=== PATIENT | female | born 1975 | race Caucasian/White ===

== ENCOUNTER 2019-07-17 11:07 | Inpatient (IN) ==
[2019-07-17] MEDS ORDERED: Ipratropium/Albuterol Neb 3 ML IH ONE (11:17)
[2019-07-17] MEDS ORDERED: levoFLOXacin 750 MG/150 ML 750 MG/150 ML BAG IVPB ONE (11:18)
[2019-07-17 11:46] LABS: Basophils # 0.1 K/mcL (0.0-0.2); Basophils % 0.3 %; Eosinophils % 0.2 %; Hemoglobin 20.8 g/dL (11.5-15.4); Immature Granulocytes % 0.4 % (0-4); Lymphocytes # 1.5 K/mcL (0.6-4.6); Lymphocytes % 9.4 %; Mean Corpuscular HGB Conc 35.9 g/dL (31.6-35.5); Mean Corpuscular Hemoglobin 34.8 pg (28.0-33.3); Mean Corpuscular Volume 97.2 fL (83.0-100.0); Monocytes # 1.1 K/mcL (0.0-1.3); Neutrophils # 13.3 K/mcL (1.6-8.9); Platelet Count 187 K/mcL (140-400); Red Blood Count 5.97 M/mcL (3.82-4.97); Red Cell Distribution Width 12.4 % (11.5-14.5); Segmented Neutrophils % 82.7 %; White Blood Count 16.1 K/mcL (4.3-11.1)
[2019-07-17] MEDS: 0.9 % Sodium Chloride 1,000 ML IVC SCH ×2 (11:49→12:58)
[2019-07-17 12:02] LABS: VBG Base Excess 2 mEq/L; VBG Chloride 101 mEq/L (98-107); VBG Glucose 127 mg/dl (65-95); VBG HCO3 26 mEq/L (21-27); VBG Ionized Calcium 1.06 mmol/L (1.15-1.35); VBG Oxygen Saturation 99 %; VBG PCO2 39 mmHg (41-51); VBG PH 7.44 pH Units (7.32-7.42); VBG PO2 115 mmHg (25-50); VBG Total CO2 28 mEq/L
[2019-07-17 12:09] LABS: Alanine Aminotransferase 19 Units/L (7-52); Albumin 3.8 g/dL (3.5-5.7); Albumin/Globulin Ratio 1.3 (1.1-2.2); Alkaline Phosphatase 116 Units/L (34-104); Aspartate Amino Transferase 17 Units/L (13-39); BUN/Creatinine Ratio 8 (6-26); Bilirubin,Direct 0.4 mg/dL (0.0-0.2); Bilirubin,Indirect 0.9 mg/dL (0.0-1.2); Bilirubin,Total 1.3 mg/dL (0.3-1.0); Blood Urea Nitrogen 3 mg/dL (6-20); Carbon Dioxide 26 mEq/L (23-29); Chloride 97 mEq/L (98-107); Glucose 125 mg/dL (70-105); Magnesium 1.6 mg/dL (1.6-2.6); Osmolality,Calculated 274 (280-300); Phosphorous 2.4 mg/dL (2.7-4.5); Potassium 3.1 mEq/L (3.5-5.1); Sodium 133 mEq/L (136-145); Total Protein 6.8 g/dL (6.4-8.9); Troponin I < 0.03 ng/mL (< 0.04); eGFR For African Americans > 60 (> 60); eGFR For Non-African Americans > 60 (> 60)
[2019-07-17] MEDS ORDERED: Potassium Chloride Elixir 20 MEQ/15 ML UDC PO ONE (12:12)
[2019-07-17 12:24] LABS: Bilirubin,Urine Small (Negative); Blood,Urine Negative (Negative); Clarity,Urine Cloudy (Clear); Color,Urine Dark Yellow (Yellow); Glucose,Urine (UA) 100 mg/dL (Normal); Ketones,Urine Negative (Negative); Leukocyte Esterase,Urine Small (Negative); Nitrite,Urine Negative (Negative); Protein,Urine 30 mg/dL (Neg-Trace); Urobilinogen,Urine Normal (Normal)
[2019-07-17 12:26] LABS: Bacteria,Urine Few per hpf (None-Few); Hyaline Casts,Urine None Seen per lpf (None-Few); Squamous Epithelial Cell,Urine Many per lpf (None-Few)
[2019-07-17 12:55] LABS: INR 1.3; Prothrombin Time 15.3 Seconds (9.4-12.1)
[2019-07-17] MEDS ORDERED: 0.9 % Sodium Chloride 500 ML IVC ONE (13:13)
[2019-07-17] MEDS ORDERED: Naloxone 0.4 MG/ML INJ IVP PRN (15:04)
[2019-07-17] MEDS: MethylPREDNISolone 40 MG/ML VIAL IVP SCH (17:07)
[2019-07-17] MEDS ORDERED: Melatonin 3 MG TABLET PO PRN (20:50)
[2019-07-18 05:25] LABS: Acinetobacter baumannii by PCR Not Detected (Not Detect); Candida albicans by PCR Not Detected (Not Detect); Candida glabrata by PCR Not Detected (Not Detect); Candida krusei by PCR Not Detected (Not Detect); Candida parapsilosis by PCR Not Detected (Not Detect); Enterobacter cloacae Cmplx PCR Not Detected (Not Detect); Enterobacteriaceae by PCR Not Detected (Not Detect); Enterococcus by PCR Not Detected (Not Detect); Escherichia coli by PCR Not Detected (Not Detect); Klebsiella oxytoca by PCR Not Detected (Not Detect); Klebsiella pneumoniae by PCR Not Detected (Not Detect); Proteus by PCR Not Detected (Not Detect); Pseudomonas aeruginosa by PCR Not Detected (Not Detect); Serratia marcescens by PCR Not Detected (Not Detect); Staphylococcus aureus by PCR Not Detected (Not Detect); Staphylococcus by PCR Not Detected (Not Detect); Streptococcus agalactiae(B)PCR Not Detected (Not Detect); Streptococcus by PCR DETECTED (Not Detect); Streptococcus pneumoniae PCR Not Detected (Not Detect); Streptococcus pyogenes (A) PCR Not Detected (Not Detect)
[2019-07-18 05:26] LABS: Candida tropicalis by PCR Not Detected (Not Detect)
[2019-07-18] MEDS: MethylPREDNISolone 40 MG/ML VIAL IVP SCH ×2 (06:24→16:06)
[2019-07-18 07:01] LABS: Basophils % 0.2 %; Eosinophils % 0.2 %; Hematocrit 53.6 % (35.3-44.9); Immature Granulocytes % 0.5 % (0-4); Lymphocytes # 2.3 K/mcL (0.6-4.6); Lymphocytes % 17.6 %; Mean Corpuscular HGB Conc 34.3 g/dL (31.6-35.5); Mean Corpuscular Hemoglobin 34.7 pg (28.0-33.3); Mean Corpuscular Volume 101.1 fL (83.0-100.0); Mean Platelet Volume 10.9 fL (9.4-12.4); Monocytes % 7.4 %; Neutrophils # 9.9 K/mcL (1.6-8.9); Platelet Count 180 K/mcL (140-400); Red Cell Distribution Width 12.3 % (11.5-14.5); Segmented Neutrophils % 74.1 %; White Blood Count 13.3 K/mcL (4.3-11.1)
[2019-07-18 07:03] LABS: Hemoglobin 18.4 g/dL (11.5-15.4)
[2019-07-18 07:19] LABS: BUN/Creatinine Ratio 11 (6-26); Blood Urea Nitrogen 3 mg/dL (6-20); Carbon Dioxide 26 mEq/L (23-29); Chloride 102 mEq/L (98-107); Glucose 92 mg/dL (70-105); Osmolality,Calculated 278 (280-300); Potassium 3.6 mEq/L (3.5-5.1); Sodium 136 mEq/L (136-145); eGFR For African Americans > 60 (> 60); eGFR For Non-African Americans > 60 (> 60)
[2019-07-18] MEDS: levoFLOXacin 750 MG/150 ML 750 MG/150 ML BAG IVPB SCH (08:20)
[2019-07-19 01:12] LABS: Basophils % 0.2 %; Eosinophils % 0.1 %; Hemoglobin 19.6 g/dL (11.5-15.4); Immature Granulocytes % 0.5 % (0-4); Lymphocytes # 1.6 K/mcL (0.6-4.6); Lymphocytes % 9.9 %; Mean Corpuscular HGB Conc 34.6 g/dL (31.6-35.5); Mean Corpuscular Hemoglobin 34.3 pg (28.0-33.3); Mean Corpuscular Volume 99.1 fL (83.0-100.0); Mean Platelet Volume 10.8 fL (9.4-12.4); Monocytes # 0.8 K/mcL (0.0-1.3); Neutrophils # 13.8 K/mcL (1.6-8.9); Platelet Count 207 K/mcL (140-400); Red Blood Count 5.71 M/mcL (3.82-4.97); Red Cell Distribution Width 12.5 % (11.5-14.5); Segmented Neutrophils % 84.3 %; White Blood Count 16.4 K/mcL (4.3-11.1)
[2019-07-19 01:15] LABS: Hematocrit 56.6 % (35.3-44.9)
[2019-07-19 01:33] LABS: BUN/Creatinine Ratio 16 (6-26); Blood Urea Nitrogen 5 mg/dL (6-20); Calcium 9.4 mg/dL (8.6-10.3); Carbon Dioxide 23 mEq/L (23-29); Chloride 100 mEq/L (98-107); Glucose 125 mg/dL (70-105); Osmolality,Calculated 275 (280-300); Potassium 3.6 mEq/L (3.5-5.1); Sodium 133 mEq/L (136-145); eGFR For African Americans > 60 (> 60); eGFR For Non-African Americans > 60 (> 60)
[2019-07-19] MEDS: MethylPREDNISolone 40 MG/ML VIAL IVP SCH (06:19)
[2019-07-19] MEDS: levoFLOXacin 750 MG/150 ML 750 MG/150 ML BAG IVPB SCH (08:29)
[2019-07-19] MEDS: Acetaminophen 325 MG TABLET PO PRN ×2 (10:20→19:25)
[2019-07-19] MEDS ORDERED: Nicotine 21 MG PATCH.TD24 TD STA (12:58)
[2019-07-19] MEDS: Ipratropium/Albuterol Neb 3 ML IH PRN ×2 (19:35→23:21)
[2019-07-20 07:02] LABS: Red Blood Count 5.53 M/mcL (3.82-4.97); White Blood Count 11.2 K/mcL (4.3-11.1)
[2019-07-20 07:03] LABS: Basophils # 0.1 K/mcL (0.0-0.2); Basophils % 0.5 %; Eosinophils # 0.1 K/mcL (0.0-0.6); Eosinophils % 0.8 %; Hematocrit 53.4 % (35.3-44.9); Immature Granulocytes % 0.6 % (0-4); Lymphocytes # 2.8 K/mcL (0.6-4.6); Lymphocytes % 24.6 %; Mean Corpuscular HGB Conc 35.6 g/dL (31.6-35.5); Mean Corpuscular Hemoglobin 34.4 pg (28.0-33.3); Mean Corpuscular Volume 96.6 fL (83.0-100.0); Mean Platelet Volume 9.6 fL (9.4-12.4); Monocytes # 0.8 K/mcL (0.0-1.3); Monocytes % 7.1 %; Neutrophils # 7.4 K/mcL (1.6-8.9); Platelet Count 233 K/mcL (140-400); Red Cell Distribution Width 12.1 % (11.5-14.5); Segmented Neutrophils % 66.4 %
[2019-07-20 07:24] LABS: BUN/Creatinine Ratio 16 (6-26); Blood Urea Nitrogen 5 mg/dL (6-20); Calcium 8.8 mg/dL (8.6-10.3); Carbon Dioxide 24 mEq/L (23-29); Chloride 100 mEq/L (98-107); Glucose 93 mg/dL (70-105); Osmolality,Calculated 279 (280-300); Potassium 3.2 mEq/L (3.5-5.1); Sodium 136 mEq/L (136-145); eGFR For African Americans > 60 (> 60); eGFR For Non-African Americans > 60 (> 60)
[2019-07-20] MEDS: Multivit/Ca/Min/Fe/FA 1 TAB TABLET PO SCH (09:18)
[2019-07-20] MEDS: levoFLOXacin 750 MG/150 ML 750 MG/150 ML BAG IVPB SCH (09:18)
[2019-07-20] MEDS: Acetaminophen 325 MG TABLET PO PRN (20:25)
[2019-07-21 05:45] LABS: Hemoglobin 19.7 g/dL (11.5-15.4); Mean Corpuscular HGB Conc 35.4 g/dL (31.6-35.5); Mean Corpuscular Hemoglobin 34.9 pg (28.0-33.3); Mean Corpuscular Volume 98.6 fL (83.0-100.0); Mean Platelet Volume 9.5 fL (9.4-12.4); Platelet Count 227 K/mcL (140-400); Red Blood Count 5.64 M/mcL (3.82-4.97); Red Cell Distribution Width 12.2 % (11.5-14.5); White Blood Count 8.7 K/mcL (4.3-11.1)
[2019-07-21 05:46] LABS: Hematocrit 55.6 % (35.3-44.9)
[2019-07-21 06:06] LABS: BUN/Creatinine Ratio 13 (6-26); Blood Urea Nitrogen 4 mg/dL (6-20); Calcium 9.1 mg/dL (8.6-10.3); Carbon Dioxide 26 mEq/L (23-29); Chloride 100 mEq/L (98-107); Glucose 92 mg/dL (70-105); Osmolality,Calculated 277 (280-300); Potassium 3.3 mEq/L (3.5-5.1); Sodium 135 mEq/L (136-145); eGFR For African Americans > 60 (> 60); eGFR For Non-African Americans > 60 (> 60)
[2019-07-21 07:21] VITALS: BP 150/96
[2019-07-21] MEDS: levoFLOXacin 750 MG/150 ML 750 MG/150 ML BAG IVPB SCH (08:56)
[2019-07-21] MEDS: Multivit/Ca/Min/Fe/FA 1 TAB TABLET PO SCH (08:56)
== END 2019-07-21 13:45 | disposition home or self-care (01) | DRG 871 ==
LOC: 3BNU 11:07 → EMEROOARM 11:07 → SUATTDRO 14:27 → 3BNU 15:25 → SUATTDRO 07-18 16:32
PROVIDERS: ADMIT Internal Medicine; ATTEND Family Medicine